=== PATIENT | male | born 1955 | race Caucasian/White ===

== ENCOUNTER 2016-10-02 17:41 | Emergency (ER) | payer OTHER, MEDICARE ==
[~2016-10-02] VITALS: Ht 167.6 cm; Wt 77.1 kg
--- NOTE | 2016-10-02 20:21 | RADIOLOGY REPORT ---
EXAMINATION: LEFT ANKLE, 3 VIEWS LEFT FOOT, 3 VIEWS CLINICAL INFORMATION: Trauma. Rule out fracture. COMPARISON: None. TECHNIQUE: 3 views of the left foot and 3 views of the left ankle. FINDINGS: There is an oblique nondisplaced fracture through the medial malleolus. There may be a small avulsion fracture from from the inferior aspect of the lateral malleolus. The ankle mortise is otherwise intact. No dislocation is seen. There is moderate diffuse soft tissue swelling about the ankle, more so laterally. There may be a small ankle joint effusion as well. No fractures identified within the midfoot, forefoot, or hindfoot. Mild degenerative changes are noted. There is soft tissue swelling along the dorsal aspect of the foot overlying the talus. IMPRESSION: Nondisplaced fracture through the medial malleolus. Questionable tiny avulsion fracture off the inferior tip of the lateral malleolus. Moderate soft tissue swelling about the ankle. Question small ankle joint effusion as well. No acute osseous traumatic findings in the left foot.
--- NOTE | 2016-10-02 20:30 | ED ANKLE/FOOT INJURY COMPLAINT ---
History of Present Illness General Chief Complaint: Fall Stated Complaint: "RUN OVER BY PT'S OWN ELECTRIC WHEELCHAIR" Source: patient Exam Limitations: no limitations Vital Signs & Intake/Output Vital Signs & Intake/Output Vital Signs Date Time Temp Pulse Resp B/P Pulse O2 O2 Flow FiO2 Ox Delivery Rate 10/02 2054 98.4 112 16 123/76 100 Room Air 10/02 1848 98.6 115 16 122/74 100 Room Air ED Intake and Output 10/03 0000 10/02 1200 Intake Total Output Total Balance Patient 170 lb Weight Allergies Coded Allergies: MDX - Phenytoin (From DILANTIN) (02/26/11) Triage Note: PT TO ED AFTER HE ACCIDENTLY RAN HIMSELF OVER WITH HIS OWN ELECTRIC WHEELCHAIR. PT STATING HE STOOD UP WHILE ATTEMPTING TO USE THE BATHROOM AND WHEELCHAIR POWER BUTTON WAS STILL ON. PT REPORTING PAIN TO L ANKLE, SLIGHT SWELLING NOTED BUT PT ABLE TO WEIGHT BEAR AND NORMAL ROM, +PULSES. PT ALSO C/O VARIOUS SCRAPES AND BRUISES TO BOTH ARMS AND LEGS, DENIES HITTING HEAD. Triage Nurses Notes Reviewed? yes Occurred: just prior to arrival Duration: hour(s):, constant, continues in ED Timing: recent history Severity: moderate, severe Pain/Injury Location: Left: Ankle. No Modifying Factors: none HPI: 61-year-old male comes into emergency room with complaints of left ankle pain. Patient has a motorized wheelchair and when they were pivoting the patient the wheelchair ran over his left foot. Some swelling. Sharp pain. Continuous. Nonradiating. Denies injury anywhere else. (JESUS BLACK) Past History Travel History Traveled to [place] past 21 day No Medical History Any Pertinent Medical History? see below for history Neurological: NONE EENT: NONE Cardiovascular: NONE Respiratory: NONE Gastrointestinal: NONE Hepatic: NONE Renal: NONE Musculoskeletal: MUSCLE DYSTONIA Psychiatric: NONE Endocrine: NONE Blood Disorders: NONE Cancer(s): NONE Surgical History Surgical History: non-contributory Psychosocial History Services at Home Home Health Aide What is your primary language Puerto Rican Tobacco Use: Never used ETOH Use: denies use Illicit Drug Use: denies illicit drug use Family History Hx Contributory? No (JESUS BLACK) Review of Systems Review of Systems Constitutional: Reports: no symptoms. EENTM: Reports: no symptoms. Respiratory: Reports: no symptoms. Cardiovascular: Reports: no symptoms. GI: Reports: no symptoms. Genitourinary: Reports: no symptoms. Musculoskeletal: Reports: see HPI. Skin: Reports: no symptoms. Neurological/Psychological: Reports: no symptoms. Hematologic/Endocrine: Reports: no symptoms. Immunologic/Allergic: Reports: no symptoms. All Other Systems: Reviewed and Negative (JESUS BLACK) Physical Exam Physical Exam General Appearance: well developed/nourished, mild distress Head: atraumatic Eyes: Bilateral: normal appearance. Ears, Nose, Throat: normal ENT inspection, hearing grossly normal Neck: normal inspection Cardiovascular/Respiratory: no respiratory distress Back: normal inspection Leg/Knee/Thigh Left: normal range of motion Ankle Left: soft tissue tenderness, swelling, tenderness, limited range of motion Foot Left: normal inspection, normal range of motion Neuro/Vascular: normal motor function, normal sensation Tendon: normal tendon function Psychiatric: awake, alert, oriented x 3 Skin: intact, normal color, warm/dry (JESUS BLACK) Progress Differential Diagnosis: fracture, dislocation, sprain, contusion Plan of Care: Current Medications Sig/Kraig Start time Last Medication Dose Stop Time Status Admin Oxycodone/ 1 TAB ONCE ONE 10/02 2044 UNVr Acetaminophen 10/02 2045 (Percocet) Diagnostic Imaging: Viewed by Me: Radiology Read. Discussed w/RAD: Radiology Read. Radiology Impression: SERVICE DATE: 10/02/16 EXAM TYPE: RAD - XRY-ANKLE 3 OR MORE VIEWS L; XRY-FOOT COMPLETE, LEFT EXAMINATION: LEFT ANKLE, 3 VIEWS LEFT FOOT, 3 VIEWS CLINICAL INFORMATION: Trauma. Rule out fracture. COMPARISON: None. TECHNIQUE: 3 views of the left foot and 3 views of the left ankle. FINDINGS: There is an oblique nondisplaced fracture through the medial malleolus. There may be a small avulsion fracture from from the inferior aspect of the lateral malleolus. The ankle mortise is otherwise intact. No dislocation is seen. There is moderate diffuse soft tissue swelling about the ankle, more so laterally. There may be a small ankle joint effusion as well. No fractures identified within the midfoot, forefoot, or hindfoot. Mild degenerative changes are noted. There is soft tissue swelling along the dorsal aspect of the foot overlying the talus. IMPRESSION: Nondisplaced fracture through the medial malleolus. Questionable tiny avulsion fracture off the inferior tip of the lateral malleolus. Moderate soft tissue swelling about the ankle. Question small ankle joint effusion as well. No acute osseous traumatic findings in the left foot. DICTATED BY: PAWEL MEYERS MD DATE/TIME DICTATED:10/02/162011 SOCIAL STUDIES DEPARTMENT CHAIR:KIET DATE/TIME TRANSCRIBED:10/02/162011 (JESUS BLACK) Departure Departure Disposition: HOME OR SELF CARE Condition: Stable Clinical Impression Primary Impression: Closed left ankle fracture Referrals: MAGALYS HAGEN,MATTHEW HERNANDEZ MD,[facility] (PCP/Family) Additional Instructions: Nonweightbearing. Ice. Motrin. Rest. Follow-up with orthopedic doctor. Please go over all results of today's visit with your primary care doctor. Contact your primary care doctor to let them know you were here in the emergency room. There may be nonspecific findings which may not be related to your visit today here in the emergency room but may require further evaluation and chronic monitoring by your primary care doctor. If you had a laceration today the chance of foreign body always remains. You should follow-up with your primary care doctor for recheck in 3-5 days for a wound check. If you had an x-ray done there is a chance that a fracture could have been missed on initial read and you should follow-up with your primary care doctor for repeat x-rays if symptoms persist. If your blood pressure was elevated here in the emergency room please have rechecked by her primary care doctor within the next 48 hours by your primary care doctor. If you were prescribed a narcotic here in the emergency room or any type of controlled substances you're not allowed to drive while taking this medication or operate any type of heavy machinery. Narcotics can make you feel lightheaded dizziness nausea and can cause constipation. You may need to pear picker a stool softener. Thank you for choosing [facility] emergency room. Please return to the emergency room immediately if you have any other concerns worsening of symptoms. Departure Forms: Customer Survey General Discharge Information (JESUS BLACK) PA/VP TRANSPORTATION Co-Sign Statement Statement: ED Attending supervision documentation- [] I saw and evaluated the patient. I have also reviewed all the pertinent lab results and diagnostic results. I agree with the findings and the plan of care as documented in the PA's/VP TRANSPORTATION's documentation. [X] I have reviewed the ED Record and agree with the PA's/VP TRANSPORTATION's documentation. [] Additions or exceptions (if any) to the PAs/VP TRANSPORTATION's note and plan are summarized below: [] (ITALO HAGEN,EMELIA Luque) Procedures Splinting Location: left ankle Manual Alignment Performed: No Pre-Made Type: Ortho-Glass Hand-Made Type: orthoglass Splint: posterior walking Splint Applied By: splint applied by me Pre-Proc Neuro Vasc Exam: normal Post-Proc Neuro Vasc Exam: normal (JESUS BLACK)
[2016-10-02 20:55] VITALS: BP 123/76
== END 2016-10-02 20:56 ==
LOC: ERH 17:41
DX: S82.52XA Displaced fracture of medial malleolus of left tibia, initial encounter for closed fracture (principal); X58.XXXA Exposure to other specified factors, initial encounter
CPT/HCPCS: 73610-LT; 73630-LT

== ENCOUNTER → 2018-03-24 | Day surgery (SDC) | payer OTHER, MEDICARE ==
[~2018-03-24] VITALS: Ht 172.7 cm; Wt 77.1 kg
--- NOTE | 2018-03-24 15:01 | Operative Report ---
Operative/Inv Procedure Report Surgery Date: 03/24/18 Name of Procedure: cystoscopy Pre-Operative Diagnosis: hemturia Post-Operative Diagnosis: bph Estimated Blood Loss: scant Surgeon/Solutions Consultant: Ariel Hollis MD Anesthesia: laryngeal mask airway Drains: none Complications: none Operative/Procedure Note Note: The patient was taken to the operative room and placed on the OR table in supine position. Timeout was performed in order to confirm the patient's identity, procedure, anesthesia, antibiotics, as well as any other pertinent information. After adequate anesthesia, and antibiotics, the patient was then placed lithotomy stirrups draped and prepped in the usual surgical fashion. A 22 Brazilian cystoscope sheath with a 30 angle lens was inserted into the urethra and advanced into the bladder without difficulty. Upon entering the prostatic urethra, the prostate was noted to be moderately enlarged with a high bladder neck. Upon entering the bladder, the bladder was noted to be mild to moderately trabeculated, with no evidence of diverticuli, no evidence of cellules, no evidence of stone, no evidence of tumor. Both ureteral orifices were in their orthotopic position, with clear reflux of urine bilaterally. The bladder was then hydrodistended 2 with the irrigation fluid at 40 cm above the symphysis pubis. No evidence of tumor, increased petechiae, nor Hunner's ulceration was noted. Both ureteral orifices had clear reflux in their orthotopic position. No terminal bleed with drainage. Bladder capacity was normal. The bladder was then drained and the cystoscope was removed under direct visualization. The patient tolerated procedure well and was taken to recovery room in satisfactory condition. Findings: no tumor, no stone: bilat. clear efflux Discharge Disposition: PACU CC: Ariel Hollis MD
== END ==
LOC: STS 02:11
DX: N40.1 Benign prostatic hyperplasia with lower urinary tract symptoms (principal); R39.14 Feeling of incomplete bladder emptying; R39.16 Straining to void; R31.9 Hematuria, unspecified; N32.89 Other specified disorders of bladder; K21.9 Gastro-esophageal reflux disease without esophagitis
CPT/HCPCS: 93005; 93010; J0696; J2250